=== PATIENT | male | born 1970 | race American Indian/Alaskan Native ===

== ENCOUNTER 2018-06-02 21:40 | Emergency (ER) | payer BC ==
[2018-06-02 21:54] VITALS: BP 152/70
[2018-06-02] MEDS ORDERED: MOTRIN PO ONE (21:56)
--- NOTE | 2018-06-02 22:43 | XRay Report ---
FINAL REPORT PROCEDURE: XR FOOT 3+V LT TECHNIQUE: LEFT foot radiographs, AP, lateral, and oblique views. CPT 42760 HISTORY: fall left foot pain COMPARISON: No prior studies are available for comparison. FINDINGS: Fracture (s) and/or Dislocation(s): There is a comminuted fracture of the calcaneus with minimal displacement of the fracture fragments. The fracture line is reaching the posterior calcaneal articular surface.. Alignment: Joint alignment is normal. Joint space(s): Normal . Soft tissues: Normal . Bone mineralization: Normal . Foreign bodies: None . Calcaneal spurring: None . IMPRESSION: Comminuted calcaneal fracture.
--- NOTE | 2018-06-02 22:44 | XRay Report ---
FINAL REPORT PROCEDURE: XR ANKLE 3+V LT TECHNIQUE: LEFT ankle radiographs, AP, lateral, and oblique views. CPT 06193 HISTORY: Left ankle pain COMPARISON: No prior studies are available for comparison. FINDINGS: Fracture (s) and/or Dislocation(s): There is a comminuted fracture involving the calcaneus with minimal displacement of the fracture fragments. Fracture line is reaching the posterior articular surface.. Alignment: Normal. Joint space(s): Normal. Soft tissues: Normal. Bone mineralization: Normal. Foreign bodies: None. Calcaneal spurring: None. IMPRESSION: Comminuted calcaneal fracture.
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
== END 2018-06-02 23:52 | disposition home or self-care (01) ==
LOC: ED 21:40
DX: S92.002A Unspecified fracture of left calcaneus, initial encounter for closed fracture (principal); W19.XXXA Unspecified fall, initial encounter; Y93.89 Activity, other specified; Y92.34 Swimming pool (public) as the place of occurrence of the external cause; Y99.8 Other external cause status